=== PATIENT | female | born 1945 | race Caucasian/White ===

== ENCOUNTER → 2016-11-01 | Outpatient (CLI) | payer MEDICARE, BC | END | disposition home or self-care (01) | LOC: PCVCIMAG 11:02 | PROVIDERS: ATTEND Internal Medicine Cardiovascular Disease | DX: I35.0 Nonrheumatic aortic (valve) stenosis (principal); I10 Essential (primary) hypertension; E78.00 Pure hypercholesterolemia, unspecified; Z88.8 Allergy status to other drugs, medicaments and biological substances | CPT/HCPCS: 80061; 93005; 93017; G0463 ==

== ENCOUNTER → 2017-05-17 | Outpatient (CLI) | payer MEDICARE, BC | END | disposition home or self-care (01) | LOC: PCVCIMAG 09:43 | DX: I08.8 Other rheumatic multiple valve diseases (principal); I10 Essential (primary) hypertension; E78.00 Pure hypercholesterolemia, unspecified; Z79.899 Other long term (current) drug therapy | CPT/HCPCS: 36415; 80061; 93005; 93306; G0463 ==

== ENCOUNTER → 2017-08-15 | Outpatient (CLI) | payer MEDICARE, BC | END | disposition home or self-care (01) | LOC: PCVCCLINIC 14:29 | DX: I10 Essential (primary) hypertension (principal); I35.0 Nonrheumatic aortic (valve) stenosis; R94.31 Abnormal electrocardiogram [ECG] [EKG]; Z95.3 Presence of xenogenic heart valve; Z79.82 Long term (current) use of aspirin | CPT/HCPCS: 93005; G0463 ==

== ENCOUNTER → 2017-09-06 | Outpatient (CLI) | payer MEDICARE, BC ==
[~2017-09-06] MED LIST: BENZOCAINE ONE 20% MUCOSAL SPRAY.; IOHEXOL 350 MG/ML 100 ML VIAL.; IOHEXOL 350 MG/ML 50 ML VIAL.; IV NORMAL SALINE 1000ML BAG 1,000 ML; LIDOCAINE 1% Multi-Dose 20 ML VIAL.; MIDAZOLAM HCL/PF 2 MG/2 ML VIAL.; ONDANSETRON PF 4 MG/2 ML VIAL.; fentaNYL PF VIAL 100 MCG/2 ML VIAL
== END | disposition home or self-care (01) ==
LOC: PCVCIMAG 07:51
DX: I08.8 Other rheumatic multiple valve diseases (principal); I25.10 Atherosclerotic heart disease of native coronary artery without angina pectoris; I11.9 Hypertensive heart disease without heart failure
CPT/HCPCS: 93306; 93312; 93325; 93456; 93567; C1751; C1760; C1769; C1894; J1644; J2250; J2405; J3010; J7030; Q9967

== ENCOUNTER → 2018-06-24 | Outpatient (CLI) | payer MEDICARE, BC | END | disposition home or self-care (01) | LOC: PCVCCLINIC 09:50 | PROVIDERS: ATTEND Internal Medicine Cardiovascular Disease | DX: I35.0 Nonrheumatic aortic (valve) stenosis (principal); I10 Essential (primary) hypertension; R94.31 Abnormal electrocardiogram [ECG] [EKG]; E78.00 Pure hypercholesterolemia, unspecified; R01.1 Cardiac murmur, unspecified; Z95.3 Presence of xenogenic heart valve; Z79.899 Other long term (current) drug therapy; Z79.82 Long term (current) use of aspirin; Z88.8 Allergy status to other drugs, medicaments and biological substances | CPT/HCPCS: 36415; 80061; 93005; G0463 ==

== ENCOUNTER → 2019-03-20 | Outpatient (CLI) | payer MEDICARE, BC ==
--- NOTE | 2019-03-20 14:52 | PCVCIMAG ---
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 2D Dimensions IVSd: 16.08 (7-11mm)LVOT Diam: 18.83 (18-24mm) LVDd: 39.30 mm PWd: 11.12 (7-11mm)Ascending Ao: 37.28 (22-36mm) LVDs: 21.49 (25-40mm) Left Atrium: 36.62 (27-40mm) Aortic Root: 32.51 mm LV Single Plane 4CH: 51.81 % LV Single Plane 2CH: 70.88 % Biplane EF: 63.0 % Volumes Left Atrial Volume (Systole) Single Plane 4CH: 58.79 mLSingle Plane 2CH: 58.16 mL Biplane LA Volume: 60.00 mLLA ESV Index: 36.00 mL/m2 Aortic Valve AoV Peak Gavin.: 2.86 m/s AO Peak Gr.: 34.78 mmHgLVOT Max P.51 mmHg AO Mean Gr.: 20.45 mmHgLVOT Mean P.48 mmHg AO V2 Mean: 2.16 m/sLVOT Max V: 1.35 m/s AO V2 VTI: 68.08 cmLVOT Mean V: 1.02 m/s MYLENE (VTI): 1.28 [id number] V1 VTI: 31.41 cm MYLENE Vmax: 1.32 cm2 SV (LVOT): 87.39 mL Mitral Valve E/A Ratio: 0.7 MV Decel. Time: 133.77 ms MV E Max Gavin.: 0.71 m/s MV A Gavin.: 1.02 m/s IVRT: 117.65 ms TDI E/Lateral E': 11.83E/Medial E': 17.75 Medial E' Gavin.: 0.04 m/s Lateral E' Gavin.: 0.06 m/s Pulmonary Valve PV Peak Gavin.: 0.98 m/sPV Peak Gr.: 3.85 mmHg Tricuspid Valve TR Peak Gavin.: 2.62 m/s TR Peak Gr.: 27.43 mmHg TV Vmax: 0.73 m/sPA Pressure: 34.00 mmHg Left Ventricle The left ventricle is normal size. There is normal LV segmental wall motion. Mild concentric left ventricular hypertrophy. Moderate basal septal hypertrophy is present. Left ventricular systolic function is normal. The left ventricular ejection fraction is within the normal range. LVEF is 60-65%. Grade I - abnormal relaxation pattern. Findings suggest the left atrial pressure is elevated. Right Ventricle The right ventricle is normal size. The right ventricular systolic function is normal. Atria Left atrium is mildly dilated. Right atrium is moderately dilated. Aortic Valve A #19 Bowens Bioprosthetic valve is seen in the aortic position. No aortic regurgitation is present. A mild gradient increase is seen across the valve from normal velocities/pressures. Mitral Valve The mitral valve is normal in structure. Moderate mitral regurgitation. No evidence of mitral valve stenosis. Tricuspid Valve The tricuspid valve is normal in structure. Moderate tricuspid regurgitation with a PA pressure of 34 mmHg. Mild pulmonary hypertension. Pulmonic Valve The pulmonary valve is normal in structure. There is no pulmonic valvular regurgitation. Great Vessels The aortic root is normal in size. Ascending aorta is upper normal in caliber. Aortic arch is normal in caliber. IVC is normal in size and collapses >50% with inspiration. Pericardium There is no pericardial effusion. There is no pleural effusion. <Conclusion> The left ventricle is normal size. Mild concentric left ventricular hypertrophy. Moderate basal septal hypertrophy is present. LVEF is 60-65%. Grade I - abnormal relaxation pattern. Findings suggest the left atrial pressure is elevated. The right ventricle is normal size. Left atrium is mildly dilated. Right atrium is moderately dilated. A #19 Bowens Bioprosthetic valve is seen in the aortic position. A mild gradient increase is seen across the valve from normal velocities/pressures. Moderate mitral regurgitation. Moderate tricuspid regurgitation with a PA pressure of 34 mmHg. Mild pulmonary hypertension. The aortic root is normal in size. There is no pericardial effusion.
== END | disposition home or self-care (01) ==
LOC: PCVCIMAG 09:10
PROVIDERS: ATTEND Internal Medicine Cardiovascular Disease
DX: I11.9 Hypertensive heart disease without heart failure (principal); R94.31 Abnormal electrocardiogram [ECG] [EKG]; I08.1 Rheumatic disorders of both mitral and tricuspid valves; E78.00 Pure hypercholesterolemia, unspecified; I42.1 Obstructive hypertrophic cardiomyopathy; I27.20 Pulmonary hypertension, unspecified; I25.10 Atherosclerotic heart disease of native coronary artery without angina pectoris; Z90.09 Acquired absence of other part of head and neck; Z95.3 Presence of xenogenic heart valve; Z79.82 Long term (current) use of aspirin; Z79.899 Other long term (current) drug therapy; Z88.8 Allergy status to other drugs, medicaments and biological substances
CPT/HCPCS: 36415; 80061; 93005; 93306; G0463